=== PATIENT | female | born 1975 ===

== ENCOUNTER 2022-01-21 11:29 | Outpatient (REF) | payer SELFPAY ==
[2022-01-21 11:30] LABS: Source Nasal/Nares
--- OUTSIDE RECORDS SUMMARY | 2022-01-21 11:35 | XMS_ITS | Encounter Summary ---
:1975 Author Organization [facility] [place] [address] Care Team Providers Name Role Phone Alyssia Asher DO Primary Care Provider Reason for Visit Consultation (Routine) - Specialty Diagnoses / Procedures Referred By Contact Refer red To Contact Dermatology Diagnoses Nonscarring hair loss, unspecified HAIR LOSS Alyssia Asher, DO [facility] D[facility]atology [address] [place] [address] [place] [address] Fax: Referral ID Status Reason Start Date Expiration Date Visits V isits Requested Authorized [id number] Consult, Test 11/22/2018 11/23/2019 6 6 & Treat [facility] PCP Updated and/or Approved Encounter Details Date Type Department Care Team Description 01/18/2019 Office Visit Dermatology at Juliane Blake Female pattern hair Road MD Ellen loss [address] [place] [address] [facility] [place], [place] [address] Social History Tobacco Use Types Packs/Day Years Used Date Never Smoker Alcohol Habits Answer Date Recorded How often do you have a drink containing alcohol? Never 02/02/2019 How many drinks containing alcohol do you have on a typical Not asked day when you are drinking? How often do you have six or more drinks on one occasion? No t asked Comment: Not asked Sex Assigned at Date Recorded Not on file documented as of this encounter Progress Notes Juliane Olivares MD - 01/18/2019 11:15 AM EDT DERMATOLOGY OUTPATIENT CLINIC NOTE Date of service: 01/18/2019 Enriqueta Ayon : 1975 Provider: Juliane Olivares MD PROBLEM: Hairloss SKIN HISTORY: Benign cyst removed from buttocks - 2012 or 2013 HPI Enriqueta Ayon is a 43 y.o. female. Patient is here today for hair loss that has been thinning for a few years and seems to have accelerated in the past 6 months. She states that it is more like shedding as opposed to clumps and her hair feels a lot different and measurement superintendent. Has allergy testing in a month - for breathing issues and congestion She denies any recent life changes, deaths in the family or major stressors. Her mother did pass away 3 years ago. Social History: Single No kids Dog Works at [employer] Family History: Denies F/H of skin cancer or melanoma. ADR: No Known Allergies CURRENT MEDICATIONS: No current outpatient medications on file. No current facility-administered medications for this visit. PROBLEM LIST: Patient Active Problem List Diagnosis Code ??? Dermatofibroma D23.9 ??? 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 Oriented X 3. Skin: denies other skin complaints EXAM General: NAD, pleasant, cooperative Skin: A focused skin examination of the scalp, significant for the following: Significant skin findings: -Widened part of the frontal and vertex scalp. Normal part on the occipital scalp. 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 She has had CBC, CMP, TSH, and vitamin D checked. All were normal except vitamin D and she is supplementing daily. - Recommend Minoxidil 5% topically to towel dry hair. Pt understands that minoxidil usually retains hair, and that hair regrowth is very variable. Discussed that it takes 6 months of use to slow hair loss and at least 12 months to see regrowth. Should pt stop minoxidil in the future, the patient may ex perience hair loss as if the patient never used the minoxidil in the first place. - if hair loss is not well controlled with topicals then we can consider oral medications such as Spironolactone. Finasteride could also be considered in the future but is reserved for post menopausal women. - Also discussed PRP, LLLT options. Patient advised this would mostly likely be an out of pocket expense. RTC - 1 year for a follow up on above; sooner if needed. Reminder placed in system to schedule. Instructed patient to call with questions or concerns. Note initiated and routed to physician for review and change by: BAKARI Barajas I, Lydia Richmond, Clinical Scribe have performed the documentation for this encounter in the presence of and acting as a scribe for Juliane Olivares MD. I, Dr. Juliane Olivares, performed the visit service though my nurse assisted me in scribing the note. I reviewed and edited this note above, a scribed service performed by my nurse. On closure of this note I agree with the accuracy of the documentation. Juliane Olivares MD Section of Dermatology [facility] documented in this encounter Plan of Treatment Not on filedocumented as of this encounter Visit Diagnoses Diagnosis Female pattern hair loss Alopecia, unspecified documented in this encounter Care Teams Furniture Sander Relationship Specialty Start Date End Date Alyssia Asher DO PCP - General Family Medicine 08/15/[address] [place] [address] documented as of this encounter
--- OUTSIDE RECORDS SUMMARY | 2022-01-21 11:35 | XMS_ITS | Encounter Summary ---
:1975 Author Organization [facility] [place] [address] Care Team Providers Name Role Phone Alyssia Asher DO Primary Care Provider Encounter Details Date Type Department Care Team Description 01/01/[address] [facility] Juliane Olivares MD [address] [facility] [place] [address] [facility] [phone] [place], [place] [address] (Wo rk) Social History Tobacco Use Types Packs/Day Years Used Date Never Smoker Smokeless Tobacco: Never Used Alcohol Use Standard Drinks/Week Comments Yes 0 (1 standard drink = 0.6 oz pure alcoho l) occasional Alcohol Habits Answer Date Recorded How often do you have a drink containing alcohol? Never 02/02/2019 How many drinks containing alcohol do you have on a typical Not asked day when you are drinking? How often do you have six or more drinks on one occasion? No t asked Comment: occasional 02/02/2019 Sex Assigned at Date Recorded Not on file documented as of this encounter Miscellaneous Notes Telephone Encounter - Alma Rosa Hayden - 01/01/2020 3:35 PM EDT Called Ms. Ayon to schedule 1 year f/u - female pattern hair loss. Left vm documented in this encounter Plan of Treatment Not on filedocumented as of this encounter Visit Diagnoses Not on filedocumented in this encounter Care Teams Diabetes Manager Relationship Specialty Start Date End Date Alyssia Asher DO PCP - General Family Medicine 08/15/18 [address] [place] [address] documented as of this encounter
--- OUTSIDE RECORDS SUMMARY | 2022-01-21 11:35 | XMS_ITS | Encounter Summary ---
:1975 Author Organization [place] [address] Care Team Providers Name Role Phone Alyssia Asher Primary Care Provider Reason for Visit Reason Comments Allergies Consultation (Routine) - Specialty Diagnoses / Procedures Referred By Contact Refer red To Contact Allergy Diagnoses ENVIRONMENTAL ALLERGY TESTING Marc Ruvalcaba, [facility] Allergy 6m DO [address] [address] [place] [address] Referral ID Status Reason Start Date Expiration Date Visits V isits Requested Authorized [id number] Consult, Test 08/12/2018 08/13/2019 10 10 & [facility] PCP Updated and/or Approved Encounter Details Date Type Department Care Team Description 02/02/2019 Office Visit Allergy at [facility] Funmi Noel, Chronic rhinitis; [facility] Conjunctivitis, unspecified conjunctivit is type, unspecified laterality Drive [place], [place] CENTER [address] ALLERGY AND [phone] IMMUNOLOGY [place], [place] [address] Social History Tobacco Use Types Packs/Day Years [...] on file documented as of this encounter Last Filed Vital Signs Vital Sign Reading Time Taken Comments Blood Pressure 123/77 02/02/2019 9:13 AM EDT Pulse 59 02/02/2019 9:13 AM EDT Temperature 36.7 ??C (98 ??F) 02/02/2019 9:13 AM EDT Respiratory Rate - - Oxygen Saturation 100% 02/02/2019 9:13 AM EDT Inhaled Oxygen Concentration - - Weight 88.5 kg (195 lb) 02/02/2019 9:13 AM EDT Height 157.5 cm (5' 2) 02/02/2019 9:13 AM EDT Body Mass Index 35.67 02/02/2019 9:13 AM EDT documented in this encounter Patient Instructions Patient InstructionsFunmi Noel MD - 02/02/2019 9:30 AM EDT 02/02/2019 Allergy skin prick tests Interpretation: Appropriate histamine, saline and glycerine controls. Negative tests to: Dust mites: DF dust mite, DP dust mite Animals and cockroach: cat, dog ( Campbell), AP dog ( Gaines Luiza), cockroach, Grass pollens: Christopher, [place] blue, orchard, Jesse grass, Bermuda grass; Tree pollens: eduardo, birch, black walnut, eastern red cedar, elm, hickory, maple, oak, pine, poplar,eastern sycamore; [place] pollens: cocklebur, mugwort, pigweed, giant ragweed, sheep sorrel, plantain; Mold spores: Aspergillus mix, Alternaria, Penicillium, Cladosporium, Helminthosporium, Curvularia, Epicoccum, Fusarium, Mucor, Stemphyllium Solani, A. Fumigatus - Since your allergy skin testing was negative, it is reasonable to try stopping Jamey ( fexofenadine) and Singulair ( montelukast). You can stop the Jamey and if your nasal symptoms are unchanged,then stop the Singulair. - Continue Nasonex 2 sprays/ nostril once daily Nasal corticosteroid Administration Technique: - Opposite hand to opposite nostril - Always want the spray tip to point out. - - Start Atrovent nasal spray 2 sprays per nostril three times daily as needed for postnasal drip andrunny nose. Try the Atrovent nasal spray for two weeks, if no change in your nasal symptoms, then stop it. - Start ketotifen ( over the counter, Zaditor, [place]) eye drops 1 drop in each eye twice daily as needed for itchy eyes - Discuss with sleep medicine provider about adjusting the humidity control of your CPAP in case that helps improve your nasal symptoms. - Continue to follow with Dr. Ruvalcaba for management of your nasal symptoms. documented in this encounter Progress Notes Funmi Noel MD - 02/02/2019 9:30 AM EDT Chief Complaint Patient presents with ??? Allergies HPI The patient is a pleasant 43 y.o. year old female whose consultation was requested by . The reason for consultation is evaluation and management of rhinitis. She has bilateral nasal congestion and throat congestion with postnasal drip. She has been symptomatic for over ten years with increased severity in the last 1.5 years. No associated rhinorrhea, unlessshe has ocular pruritus during the spring and fall. No anosmia. No h/o MANAGER SAFE or sinus surgery. No priorallergy testing. No history of sinusitis. She is currently on Jamey once daily, Nasonex 2 sprays/nostril once daily and Montelukuast 10mg daily. The symptoms are less severe but still present on this regimen. She has tried Claritin and did not control her nasal symptoms. She felt loopy on Flonase and Astelin and she had to stop them. She felt better after she stoppedthe Flonase and Astelin. She tried pseudoephedrine but stopped it because it caused brain fog. She has not tried Zyrtec. She was diagnosed with juvenile asthma at 13 yo. She was prescribed an inhaler at that time. However, she has not had an inhaler since she was 13 yo. No nocturnal awakenings or limitations in ADL because of difficulty breathing. She exercises regularly without any difficulties. No reflux or heartburn. She has CYNTHIA and uses CPAP nightly. She takes metoprolol 25mg once daily as needed for palpitations. She has a history of PVCs. She lasttook metoprolol one to two months ago. Never smoker. No current second hand smoke exposure. She has a dog that enters her bedroom, not on bed. No woodstove or fireplace. 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 Review of Systems: All other systems reviewed and negative except as noted below: Review of Systems Constitution: Positive for malaise/fatigue. HENT: Positive for congestion. Decreased sense of smell, facial pressure Eyes: Itchy, redness, blurry Respiratory: Positive for snoring. All other systems reviewed and are negative. Allergies, medications, past medical/ surgical history were reviewed and updated in eD. Allergies: Bactrim [sulfamethoxazole-trimethoprim] Medications: Outpatient Medications Marked as Taking for the 02/02/19 encounter (Office Visit) with Funmi Noel MD Medication Sig Dispense Refill ??? metoprolol tartrate (LOPRESSOR) 25 mg Tablet Take 25 mg by mouth 2 times daily as needed (palpitations). ??? montelukast (SINGULAIR) 10 mg Tablet Take 10 mg by mouth nightly. ??? mometasone (NASONEX) 50 mcg/actuation [place], Non-Aerosol by Nasal route. Indications: 2 squirts per nostril per day ??? fexofenadine (JAMEY) 180 mg Tablet Take 180 mg by mouth daily. ??? cholecalciferol, Vitamin D3, 1,000 unit Tablet Take by mouth daily. Past Medical and Social History: Past Medical History: Diagnosis Date ??? Asthma juvenile asthma. No inhaler since 13yo. History reviewed. No pertinent surgical history. Family history: Family History Problem Relation Age of Onset ??? Allergic Rhinitis Mother ??? Asthma Neg Hx Social history: Social History Socioeconomic History ??? Marital status: Single Spouse name: None ??? Number of children: None ??? Years of education: None ??? Highest education level: None Occupational History ??? None Social Needs ??? Financial resource strain: None ??? Food insecurity: Worry: None Inability: None ??? Transportation needs: Medical: None Non-medical: None Tobacco Use ??? Smoking status: Never Smoker ??? Smokeless tobacco: Never Used Substance and Sexual Activity ??? Alcohol use: Yes Frequency: Never Comment: occasional ??? Drug use: Never ??? Sexual activity: None Lifestyle ??? Physical activity: Days per week: None Minutes per session: None ??? Stress: None Relationships ??? Social connections: Talks on phone: None Gets together: None Attends congregational service: None Active member of club or organization: None Attends meetings of clubs or organizations: None Relationship status: None ??? Intimate partner violence: Fear of current or ex partner: None Emotionally abused: None Physically abused: None Forced sexual activity: None Other Topics Concern ??? None Social History Narrative ??? None Physical Exam: Vital signs reviewed. Most Recent Vitals: 02/02/19 0913 BP: 123/77 Pulse: 59 Temp: 36.7 ??C (98 ??F) SpO2: 100% Normal Except General: - No apparent distress Eyes: - Conjunctivae without injection; - No eyelid swelling ENT: - No erythema of the tympanic membranes - Normal external ear canals - Nl nasal mucosa, septum, and turbinates; - Oropharynx well hydrated without lesions or exudates; - Face & sinuses non-tender to palpation/percussion Neck: - Symmetrical, no masses, trachea midline; Resp: - Unlabored breathing with symmetrical and equal bilateral expansion; - CTA w/o wheezes, rales, or rhonchi; CV: - Regular rate and rhythm - No pedal swelling GI: - Abdomen soft - Bowel sounds present - No hepatosplenomegaly Lymph: - No significant cervical, supraclavicular or infraclavicular lymphadenopathy Musculoskeletal: - Nl gait and station Extremities: - No clubbing, cyanosis, or edema Skin: - No rashes Neuro: - Nl gait and station Psych: - Nl and age appropriate mood and affect - Judgement and insight intact TESTS/PROCEDURES 02/02/2019 Allergy skin prick tests # tests: 42 Interpretation: Appropriate histamine, saline and glycerine controls. Negative tests to: Dust mites: DF dust mite, DP dust mite Animals and cockroach: cat, dog ( Campbell), AP dog ( Gaines Luiza), cockroach, Grass pollens: Christopher, [place] blue, orchard, Jesse grass, [place] grass; Tree pollens: eduardo, birch, black walnut, eastern red cedar, elm, hickory, maple, oak, pine, poplar,eastern sycamore; [place] pollens: cocklebur, mugwort, pigweed, giant ragweed, sheep sorrel, plantain; Mold spores: Aspergillus mix, Alternaria, Penicillium, Cladosporium, Helminthosporium, Curvularia, Epicoccum, Fusarium, Mucor, Stemphyllium Solani, A. fumigatus IMPRESSION/REPORT/PLAN 1. Chronic rhinitis 2. Conjunctivitis, unspecified conjunctivitis type, unspecified laterality Rhinitis and conjunctiviitis are most likely not related to environmental allergies to allergens included in the skin tests above. The underlying mechanism for her rhinitis and conjunctivitis is likely non- IgE mediated. Her CPAP machine may be drying her mucosal membranes and exacerbating her symptoms. Allergy skin testing was unremarkable, the patient may discontinue fexofenadine and montelukast. If her nasal symptoms are unchanged after stopping the fexofenadine, she can then try stopping the montelukast. - Continue Nasonex 2 sprays per nostril once daily. Reviewed appropriate administration technique tominimize risk of nasal septal perforation and nosebleeds. - Start Atrovent nasal spray 2 sprays per nostril 3 times daily as needed for rhinitis. If no changein nasal symptoms after 2-week trial, she can stop the Atrovent nasal spray. - Start ketotifen eyedrops 1 drop in each eye twice daily as needed for itching eyes - Discussed with sleep medicine provider about adjusting the humidity control of the CPAP machine tosee if it improves her nasal symptoms -Continue to follow with Dr. Ruvalcaba for management of her rhinitis - If her conjunctivitis symptoms persist after trying ketotifen eyedrops, she should establish care with an eye care provider and follow-up with her primary care provider Medication ordered or changed during this encounter, will not show discontinued medications Medications ??? ipratropium (ATROVENT) 0.03 % [place], Non-Aerosol Si sprays by Nasal route 3 times daily as needed for Rhinitis. Dispense: 30 mL Refill: 1 ??? ketotifen (ZADITOR) 0.025 % (0.035 %) Drops Sig: Place 1 drop into both eyes 2 times daily as needed (itchy eyes). Dispense: 5 mL Refill: 0 Return if symptoms worsen or fail to improve, for rhinitis. eDH record was reviewed. Written instructions were reviewed and provided to the patient. No learning barriers were identified. The risks, benefits, alternatives and indications for the use of mediations prescribed or recommended during today's visit were reviewed with the patient. The patient understood and agreed with what was discussed. All questions were answered. documented in this encounter Plan of Treatment Not on filedocumented as of this encounter Visit Diagnoses Diagnosis Chronic rhinitis Conjunctivitis, unspecified conjunctivit is type, unspecified laterality documented in this encounter Care Teams Nursing Education Specialist Relationship Specialty Start Date End Date Alyssia Asher DO PCP - General Family Medicine 08/15/[address] [place] [id number] documented as of this encounter
--- OUTSIDE RECORDS SUMMARY | 2022-01-21 11:35 | XMS_ITS | Encounter Summary ---
:1975 Author Organization [facility] [place] [address] Care Team Providers Name Role Phone Unavailable Primary Care Provider Unavailable Reason for Visit Reason Comments Nevus R buttock, raised and becomi ng darker, moles on back Encounter Details Date Type Department Care Team Description 12/15/2013 Office Visit Dermatology at [facility], Dermatof ibroma (Primary Dx); Tomas SHANNAN Multiple pigmented nevi [address] [facility] [address] [place], [place] DERMATOLOGY [address] [place], [place] [phone] [address] Social History Tobacco Use Types Packs/Day Years [...] documented as of this encounter Progress Notes Jacques Gu PA - 12/15/2013 8:28 AM EDT Chief complaint: Check mole on right buttocks. Then check moles on back also. Current medications and allergies reviewed and updated as noted above. 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 She comes in with a history of moles on her back she wanted to have checked but is also concerned about a larger mole on her right buttocks that can be sore at times. OBJECTIVE: Examination of her back shows a scattering of nevi. They vary a little bit in size and shape. They are not great in number, but I do not see anything here that looks worrisome or warrants biopsy. On the right buttocks, however, there is a 1.5-cm, maroonish-brown, firm plaque. ASSESSMENT: Multiple pigmented nevi, benign, and then on the buttocks a dermatofibroma. PLAN: Had Dr. Acevedo come in and take a look at this. Since it has been painful, would consider having removal, and so we are going to have the patient set up a pro-[address] Acevedo to have this surgically removed. Dr. Acevedo reviewed that with her. Followup leave open ended. Call with concerns. documented in this encounter Plan of Treatment Not on filedocumented as of this encounter Visit Diagnoses Diagnosis Dermatofibroma - Primary Benign neoplasm of skin, site unspecifie d Multiple pigmented nevi Benign neoplasm of skin, site unspecifie d documented in this encounter
--- OUTSIDE RECORDS SUMMARY | 2022-01-21 11:35 | XMS_ITS | Encounter Summary ---
:1975 Demographics Home Phone Preferred Language Unknown Marital Status Unknown Taoism Affiliation Unknown Race Unknown Ethnic Group Unknown Author Organization [facility] Address [address] [place] [address] Care Team Providers Name Role Phone Unavailable Primary Care Provider Unavailable Encounter Details Date Type Department Care Team Description 10/17/2021 Lab Requisition [facility] Outr Resulting Lab, Pathology & Laboratory Provider [facility] [address], [place] [id number] Social History Tobacco Use Types Packs/Day Years Used Date Never Assessed Sex Assigned at Date Recorded Not on file documented as of this encounter Plan of Treatment Not on filedocumented as of this encounter Procedures Procedure Name Priority Date/Time Associated Comments Diagnosis QUANTIFERON MITOGEN Today 10/16/2021 16:07 (PERFORMABLE) EDT QUANTIFERON TB2 Today 10/16/2021 16:07 (PERFORMABLE) EDT QUANTIFERON TB1 Today 10/16/2021 16:07 (PERFORMABLE) EDT QUANTIFERON NIL Today 10/16/2021 16:07 (PERFORMABLE) EDT QUANTIFERON Today 10/16/2021 16:07 Results for this INTERPRETATION EDT procedure are in (PERFORMABLE) the results section. QUANTIFERON TB GOLD Routine 10/16/2021 16:07 Resu lts for this PLUS EDT procedure are i n the results section. documented in this encounter Results QUANTIFERON INTERPRETATION (PERFORMABLE) (10/16/2021 16:07 EDT) Quantiferon NegativeComment: No Negative [facility] Interpretation interferon-gamma [facility] response to M. SERVICES tuberculosis antigens was detected. ??Infection with M. tuberculosis is unlikely. A single negative result does not exclude infection with M. tuberculosis. ??In patients at high risk for M. tuberculosis infection, a second test should be considered. TB1 Ag minus Nil 0.00 IU/ml [facility] TB2 Ag minus Nil 0.03 IU/mL [facility] Specimen Blood - Venous blood (substance) Narrative [facility] - 10/20/2021 13:19 EDT Results were obtained with the Qiagen QuantiFERON-TB Gold Plus CLIA. New platform in use 01/29/2021 Performing Organization Address City/[facility]/ZIP Code Phon e Number [facility] [address] [place] [address] SERVICES QUANTIFERON MITOGEN (PERFORMABLE) (10/16/2021 16:07 EDT) Specimen Blood - Venous blood (substance) Performing Organization Address City/[facility]/ZIP Code Phon e Number [facility] [address] [place] [address] SERVICES QUANTIFERON TB2 (PERFORMABLE) (10/16/2021 16:07 EDT) Specimen Blood - Venous blood (substance) Performing Organization Address [facility]/ZIP Code Phon e Number [facility] [address] [place] [address] SERVICES QUANTIFERON TB1 (PERFORMABLE) (10/16/2021 16:07 EDT) Specimen Blood - Venous blood (substance) Performing Organization Address City/[facility]/ZIP Code Phon e Number [facility] [address] [place] [address] SERVICES QUANTIFERON NIL (PERFORMABLE) (10/16/2021 16:07 EDT) Specimen Blood - Venous blood (substance) Performing Organization Address [facility]/ZIP Code Phon e Number [facility] [address] [place] [address] SERVICES documented in this encounter Visit Diagnoses Not on filedocumented in this encounter
--- OUTSIDE RECORDS SUMMARY | 2022-01-21 11:35 | XMS_ITS | Encounter Summary ---
:1975 Author Organization [facility] [place] [address] Care Team Providers Name Role Phone Alyssia Asher DO Primary Care Provider Encounter Details Date Type Department Care Team Description 02/02/2019 Tech Visit Allergy at [facility] [place] [address] Social History Tobacco Use Types Packs/Day Years [...] encounter Procedures Procedure Name Priority Date/Time Associated Diagnosis Comme nts ALLERGY SCAN 02/02/2019 12:00 AM Results for this EDT procedure are i n the results section . documented in this encounter Results SCAN DOC: ALLERGY (02/02/2019 12:00 AM EDT) Narrative 02/02/2019 12:00 AM EDT This result has an attachment that is no t available. Ordered by an unspecified provider. Scanning Provider MEDIA MGR SCAN EXT ORDR/RSLT documented in this encounter Visit Diagnoses Not on filedocumented in this encounter Care Teams Head Teller Relationship Specialty Start Date End Date Alyssia Asher DO PCP - General Family Medicine 08/15/[address] [place] [id number] documented as of this encounter
--- OUTSIDE RECORDS SUMMARY | 2022-01-21 11:35 | XMS_ITS | Encounter Summary ---
:1975 Demographics Home Phone Preferred Language Unknown Marital Status Unknown Rastafari Affiliation Unknown Race Unknown Ethnic Group Unknown Author Organization [facility] Address [address] [place] [address] Care Team Providers Name Role Phone Unavailable Primary Care Provider Unavailable Encounter Details Date Type Department Care Team Description 10/17/2021 Lab Requisition [facility] Outr Resulting Lab, Pathology & Laboratory Provider [facility] [address] [id number] Social History Tobacco Use Types Packs/Day Years Used Date Never Assessed Sex Assigned at Date Recorded Not on file documented as of this encounter Plan of Treatment Not on filedocumented as of this encounter Procedures Procedure Name Priority Date/Time Associated Diagnosis Comme nts HOLD SST Today 10/16/2021 16:07 Results for this EDT procedure are i n the results section. HEPATITIS B SURFACE Today 10/16/2021 16:07 Resu lts for this ANTIBODY EDT procedure are i n the results section. VARICELLA IGG Today 10/16/2021 16:07 Results fo r this ANTIBODY EDT procedure are i n the results section. documented in this encounter Results HOLD SST (10/16/2021 16:07 EDT) Pathologist Sig nature Hold Hold [facility] Y SERVICES Specimen Blood - Venous blood (substance) Performing Organization Address City/State/ZIP Code Phon e Number [facility] [address] [place] [address] SERVICES HEPATITIS B SURFACE ANTIBODY (10/16/2021 16:07 EDT) Hep B Surface Ab, <3.1 See Note [facility] Quantitative Comment: mIU/mL [facility] Reference Range for Hep B Surface Ab, Quant: SERVICES Positive: >= 10.0 mIU/mL Negative: ??< 10.0 mIU/mL Patient is presumed to not be immune to infection with Hepatitis B Virus. Hep B Surface Ab, Negative See Note [facility] Qualitative Comment: [facility] Reference Range for Hep B Surface Ab, Qual: SERVICES Unvaccinated: ??Negative Vaccinated: ??Positive Specimen Blood - Venous blood (substance) Performing Organization Address City/State/ZIP Code Phon e Number [facility] [address] [place] [address] SERVICES VARICELLA IGG ANTIBODY (10/16/2021 16:07 EDT) Varicella IgG Ab PositiveComment: See Note [facility] Presence of LABORATORY SERVICES detectable Varicella Zoster virus IgG antibodies. Specimen Blood - Venous blood (substance) Performing Organization Address City/[facility] Code Phon e Number [facility] [address] [place] [address] SERVICES documented in this encounter Visit Diagnoses Not on filedocumented in this encounter
--- OUTSIDE RECORDS SUMMARY | 2022-01-21 11:35 | XMS_ITS | Clinical Summary ---
:1975 Demographics Home Phone Preferred Language Unknown Marital Status Unknown Evangelical Affiliation Unknown Race Unknown Ethnic Group Unknown Author Organization [facility] Address [address] [place] [address] Care Team Providers Name Role Phone Unavailable Primary Care Provider Unavailable Social History Tobacco Use Types Packs/Day Years Used Date Never Assessed Sex Assigned at Date Recorded Not on file Plan of Treatment Health Maintenance Due Date Last Done Comments Hepatitis C Screen 1975 COVID-19 Vaccine (1) 02/18/1981
--- OUTSIDE RECORDS SUMMARY | 2022-01-21 11:35 | XMS_ITS | Encounter Summary ---
:1975 Author Organization [facility] [place] [address] Care Team Providers Name Role Phone [place] Lakeraissa Malcolm APRN Lisset Primary Care Provider Encounter Details Date Type Department Care Team Description 05/11/2018 Hospital Encounter Laboratory [facility] [place] [address] Social History Tobacco Use Types Packs/Day [...] Procedure Name Priority Date/Time Associated Comments Diagnosis MARKET DEVELOPMENT TRAINER CYTOLOGY Routine 05/11/2018 12:00 Results for this INTERPRETATION PM EST procedure are in the results section. MARKET DEVELOPMENT TRAINER CYTOLOGY FINAL Routine 05/11/2018 12:00 Resul ts for this REPORT PM EST procedure are i n the results section. documented in this encounter Results [facility] Final Report (05/11/2018 12:00 PM EST) Component Value Ref Test Analysis Performed At [facility] Range Method Time Signature [facility] [id number] ? Location: [facility] Final Report R[place] The signing pathologist has (i) examined the relevant preparation(s) for the [facility] specimen(s) and (ii) rendered or confirmed the diagnosis(es) . HOSPITAL LABORATORY . ? [facility] Final DIAGNOSIS Normal Negative for intraepithelial lesion or malignancy (NILM). For consensus guidelines for the management of c ervical cancer screening test results, please see: ?? http://www.asccp.org . Electronically signed by: ??Tamara Carr Verified: ??05/27/2018 Performed at: ??-[facility] Dept. of Pathology, [place], [place] HPV RESULTS Not applicable (HPV testing either not indicated or not requested by clinician). STATEMENT OF ADEQUACY Specimen submitted is satisfactory. Endocervical component present. CLINICAL INFORMATION HPV Option: ? Reflex HPV CT/NG Option: ??(not provided) Preparation: ?Liquid Based Pap Specimen Source: ?Cervical Endocervical LBP LMP: ?/-05/05/2018 Hormones?: ?No Hysterectomy?: ?No ?: ?No ?: ?No I.U.D.?: ?No Pelvic Radiation: ? No Prior MARKET DEVELOPMENT TRAINER Therapy?: ? No Hist Abnl Pap/Biopsy?: ??Yes Hist of HPV Vaccine?: ?? No Hist of Smoking?: ? No Hist of RODRIGO exposure?: ??No Clinical Data, Significant Therapy and Clinical Impression ? ? : ?? _ Referring Identifier: ?(not provided) This Pap Test has been evalu ated with the assistance of the ThinPrep Pap Test Imaging System. Note: The Pap test is a screening test for cervical cancer with an inherent false-negative rate dependent upon several variables. For further information please contact the [facility] Laboratory. Reference: Timo RODGERS. Francisco lity Assurance of Pap Smear Results. In: Zo BS, Lasha HH, ed. ??The Pap Smear. [place]: Nito, 2002: 71-77. Specimen (Source) Anatomical Collection Method Collection Time Re ceived Time Location / / Volume Laterality 05/11/2018 12:00 PM EST Resulting Agency Comment Spec In Lab / WKS Alyssia Asher DO PATHOLOGY/CYTOLOGY ORDERABLE S Performing Organization Address City/[facility]/[place] [address] MARKET DEVELOPMENT TRAINER Cytology Interpretation (05/11/2018 12:00 PM EST) [facility] gist Method Time Signature [facility] Comment: [facility] Cyt[facility] Final Report Acces nubia: [id number] Endocervical Component Present [facility] Specimen Anatomical Collection Method Collection Time Receive d Time (Source) Location / / Volume Laterality AP Specimen 05/11/2018 12:00 05/27/2018 2:34 PM EST PM EST Resulting Agency Comment Spec In Lab / WKS Alyssia Asher DO PATHOLOGY/CYTOLOGY ORDERABLE S Performing Organization Address City/[facility]/ZIP Code Phon e Number [address] documented in this encounter Visit Diagnoses Not on filedocumented in this encounter Care Teams Herbarium Curator Relationship Specialty Start Date End Date Lisset Renner APRN PCP - General 02/28/14 08/14/[address] [place] [id number] documented as of this encounter
--- OUTSIDE RECORDS SUMMARY | 2022-01-21 11:35 | XMS_ITS | Encounter Summary ---
:1975 Author Organization [facility] [place] [address] Care Team Providers Name Role Phone MarthaKaila cheng VICTORINA Primary Care Provider Encounter Details Date Type Department Care Team Description 01/05/2014 Hospital Encounter Laboratory Jia Baker, Neoplasm of uncertain behavi or of skin; [facility] [address] [place] [phone] Social History Tobacco Use Types Packs/Day Years [...] Name Priority Date/Time Associated Diagnosis Comme nts SPECIMEN TO Routine 01/05/2014 3:34 PM Neoplasm of Results f or this PATHOLOGY (NON-OR) EDT uncertain behavior pro cedure are in of skin the results Pain section. SURGICAL PATHOLOGY Routine 01/05/2014 1:30 PM Res ults for this REPORT EDT procedure are i n the results section. documented in this encounter Results Specimen to Pathology (NON-OR) (01/05/2014 3:34 PM EDT) Specimen Anatomical Collection Method Collection Time Receive d Time (Source) Location / / Volume Laterality AP Specimen 01/05/2014 3:34 PM 4 3:34 EDT PM EDT Narrative [facility] - 01/05/2014 3:34 PM E DT Specimen requisition ordered. ??Separate Pathology report to follow Jia Baker DO PATHOLOGY/CYTOLOGY ORDERABLE S Performing Organization Address City/State/ZIP Code Phon e Number [place] [phone] [address] LAB[address] [facility] Surgical Pathology Report (01/05/2014 1:30 PM EDT) Component Value Ref Test Analysis Performed At [facility] Range Method Time Signature Surgical [facility] Pathology ? [facility] Report ? Provider: ?? JIA BAKER ?? Pt. Name: ?? MARY SHEPPARD ? Acc #: ?[id number] ? Pt. ? Col Date: ?? 4 ? /Sex: ?1975,(38 years),Female ? Rec Date: ?? 01/05/2014 ? LOC: ?MAN4 ? SURGICAL PATHOLOGY ? ---Pathologic Diagnosis--- ? 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 ? CR-0 ? 01/08/14 ? [facility] ? 01/08/14 Verified by: ? Jacques Smith MD ? Dermatopatholo gist ? (Electronic Si gnature) ? The attending pathologist whose signature appears o n this report has ? reviewed all diagnostic slides and has edited the carmen ss and/or ? microscopic portion of the report in rendering the fi nal pathologic ? diagnosis. ? ---Gross Description--- ? A - Labeled/Fixative: Patient demographics, formalin. ? Quantity/Size: Single, 3.1 x 1.8 x 0.8 cm. ? Tissue Description: E llipse of duran-white skin. ??There is a suture at one ? edge. ??Suture is juan luis ented at 12 o'clock. The skin surfaces are duran-white ? with a central 0.7 cm , brown-purple scar with a central crust, 0.2 cm. The ? margin from 9 o'clock to 12 o'clock to 3 o'clock is marked blue; the ? opposite margin and deep margin are marked black. ? Sections/Processing: The specimen is serially sectioned from 3 o'clock to 9 ? o'clock and totally s ubmitted, with 3 o'clock apex in A1 and 9 o'clock apex ? in A8. ??(T8) ??pps ? ---Clinical Information--- ? Specimen Submitted: ? A - Skin, right buttock, excision (1) ? Clinical History: ? 1.5 times a brown purple nodule with central scarring ? Clinical Diagnosis: ? Dermatofibroma with itch and growth Specimen (Source) Anatomical Collection Method Collection Time Re ceived Time Location / / Volume Laterality 01/05/2014 1:30 PM EDT Jia Baker DO PATHOLOGY/CYTOLOGY ORDERABLE S Performing Organization Address City/State/[place] [address] HOSPITAL LABORATORY [facility] documented in this encounter Visit Diagnoses Diagnosis Neoplasm of uncertain behavior of skin Pain Generalized pain documented in this encounter Care Teams Tacking Machine Operator Relationship Specialty Start Date End Date Kaila Childers APRN PCP - General 01/05/14 02/27/14 HANANE [address] [place] [address] documented as of this encounter
[2022-01-21 14:20] LABS: COVID-19 PCR Negative (Negative)
== END 2022-01-21 11:30 | disposition home or self-care (01) ==
LOC: LBN 11:29
PROVIDERS: Visit Provider Nurse Practitioner Family
DX: Z20.822 Contact with and (suspected) exposure to COVID-19 (principal)
CPT/HCPCS: 87635